=== PATIENT | male | born 1985 | race Asian ===

== ENCOUNTER 2018-05-25 17:07 | Inpatient (IN) | payer OTHER ==
--- NOTE | 2018-05-25 17:10 | EDPHY ---
H & P Time Seen by Provider: 05/25/18 17:10 HPI/ROS: CHIEF COMPLAINT: Abdominal pain HISTORY OF PRESENT ILLNESS: Started having abdominal pain yesterday initially epigastric now moved to the right lower quadrant. Worse with movement, associated with nausea vomiting but no diarrhea. He has some constipation. Not associated with urinary symptoms. Went to urgent care today and was then referred here. Symptoms now moderate to severe. No radiation. REVIEW OF SYSTEMS: Eye: no change in vision ENT: no sore throat Cardiac: no chest pain or syncope Pulmonary: no cough or SOB Abdomen: HPI Musculoskeletal: no back pain Skin: no rash Neuro: no headache Constitutional: no fever : no urinary symptoms A comprehensive 10 point review of systems is otherwise negative aside from elements mentioned in the history of present illness. PAST MEDICAL HISTORY: Negative Social history: No alcohol General Appearance: Alert and conversant, cooperative. Eyes: No scleral icterus. ENT, Mouth: Dry mucous membranes. Respiratory: Normal respiratory effort, breath sounds equal, lungs are clear to auscultation. Cardiovascular: Regular rate and rhythm. Gastrointestinal: Normal male , McBurney's point tenderness with guarding. Decreased bowel sounds. Neurological: Alert, face symmetric, normal motor and sensory in extremities. Skin: Warm and dry, no rashes. Musculoskeletal: No peripheral edema. Psychiatric: Not agitated. Emergency Department course/MDM: Zofran 4 mg IV, fentanyl 100 mcg IV. I-STAT and CT scanning discussed and consented, moderate suspicion for appendicitis. 174: istat creat 1.0, CT ordered. 1826: Patient given 1 g IV Invanz, specifically at the request of consulting surgeon Dr. Nieto. Results and plan discussed with the patient. Emilia in ED to see him. Constitutional: Initial Vital Signs Temperature (C) 36.9 C 05/25/18 17:12 Heart Rate 112 H 05/25/18 17:12 Respiratory Rate 16 05/25/18 17:12 Blood Pressure 139/90 H 05/25/18 17:12 O2 Sat (%) 93 05/25/18 17:12 O2 Delivery Mode Room Air Allergies/Adverse Reactions: No Known Allergies Allergy (Unverified 05/25/18 17:12) Home Medications: Medication Instructions Recorded NK [No Known Home Meds] 05/25/18 Medical Decision Making - Diagnostics Imaging Results: CT discussed with Dr. Ferrera shows appendicitis with appendicolith. Also has some small bowel inflammation. Imaging: Discussed imaging studies w/ finishing technician Radiologist, I viewed and interpreted images myself Differential Diagnosis: Differential considered including but not limited to appendicitis, testicular torsion, renal colic, UTI, cecal volvulus. Consult/Admit Bed Type: [place] [id number] - Data Points Laboratory Results: Laboratory Results 05/25/18 17:20 05/25/18 17:20 05/25/18 05/25/18 05/25/18 17:25 17:20 17:20 WBC 21.04 10^3/uL H 10^3/uL (3.80-9.50) RBC 5.56 10^6/uL 10^6/uL (4.40-6.38) Hgb 16.9 g/dL g/dL (13.7-17.5) POC Hgb 17.3 gm/dL gm/dL (13.7-17.5) Hct 48.7 % % (40.0-51.0) POC Hct 51 % % (40-51) MCV 87.6 fL fL (81.5-99.8) MCH 30.4 pg pg (27.9-34.1) MCHC 34.7 g/dL g/dL (32.4-36.7) RDW 12.5 % % (11.5-15.2) Plt Count 324 10^3/uL 10^3/uL (150-400) MPV 9.7 fL fL (8.7-11.7) Neut % (Auto) 83.9 % H % (39.3-74.2) Lymph % (Auto) 9.4 % L % (15.0-45.0) [place] % (Auto) 6.2 % % (4.5-13.0) Eos % (Auto) 0.0 % L % (0.6-7.6) Baso % (Auto) 0.1 % L % (0.3-1.7) Nucleat RBC Rel Count 0.0 % % (0.0-0.2) Absolute Neuts (auto) 17.65 10^3/uL H 10^3/uL (1.70-6.50) Absolute Lymphs (auto) 1.97 10^3/uL 10^3/uL (1.00-3.00) Absolute Monos (auto) 1.30 10^3/uL H 10^3/uL (0.30-0.80) Absolute Eos (auto) 0.00 10^3/uL L 10^3/uL (0.03-0.40) Absolute Basos (auto) 0.03 10^3/uL 10^3/uL (0.02-0.10) Absolute Nucleated RBC 0.00 10^3/uL 10^3/uL (0-0.01) Immature Gran % 0.4 % % (0.0-1.1) Immature Gran # 0.09 10^3/uL 10^3/uL (0.00-0.10) POC Sodium 138 mEq/L mEq/L (135-145) Sodium 137 mEq/L mEq/L (135-145) POC Potassium 3.7 mEq/L mEq/L (3.3-5.0) Potassium 4.3 mEq/L mEq/L (3.3-5.0) POC Chloride 101 mEq/L mEq/L (97-110) Chloride 100 mEq/L mEq/L (97-110) Carbon Dioxide 22 mEq/l mEq/l (22-31) Anion Gap 15 mEq/L mEq/L (8-16) POC BUN 17 mg/dL mg/dL (7-23) BUN 16 mg/dL mg/dL (7-23) Creatinine 1.0 mg/dL mg/dL (0.7-1.3) POC Creatinine 1.0 mg/dL mg/dL (0.7-1.3) Estimated GFR > 60 Glucose 127 mg/dL H mg/dL (70-100) POC Glucose 133 mg/dL H mg/dL (70-100) Calcium 10.0 mg/dL mg/dL (8.5-10.4) Medications Given: Discontinued Medications Fentanyl (Sublimaze) 100 mcg IVP EDNOW ONE Stop: 05/25/18 17:16 Last Admin: 05/25/18 17:20 Dose: 100 mcg Sodium Chloride (Ns) 1,000 mls @ 0 mls/hr IV EDNOW ONE; Wide Open PRN Reason: Protocol Stop: 05/25/18 17:16 Last Admin: 05/25/18 17:20 Dose: 1,000 mls Ertapenem 1 gm/ Sodium (Chloride) 100 mls @ 200 mls/hr IV EDNOW ONE PRN Reason: Protocol Stop: 05/25/18 19:29 Last Admin: 05/25/18 18:53 Dose: 100 mls Ondansetron HCl (Zofran) 4 mg IVP EDNOW ONE Stop: 05/25/18 17:16 Last Admin: 05/25/18 17:20 Dose: 4 mg Point of Care Test Results: Chemistry 05/25/18 17:25 POC Sodium 138 mEq/L mEq/L (135-145) POC Potassium 3.7 mEq/L mEq/L (3.3-5.0) POC Chloride 101 mEq/L mEq/L (97-110) POC BUN 17 mg/dL mg/dL (7-23) POC Creatinine 1.0 mg/dL mg/dL (0.7-1.3) POC Glucose 133 mg/dL H mg/dL (70-100) ISTAT H&H 05/25/18 17:25 POC Hgb 17.3 gm/dL gm/dL (13.7-17.5) POC Hct 51 % % (40-51) Departure - Departure Disposition: To OP Cath/Surgery Clinical Impression: Acute appendicitis Qualifiers: Acute appendicitis type: with localized peritonitis Appendicitis gangrene presence: unspecified whether gangrene present Appendicitis perforation presence : without perforation Appendicitis abscess presence: without abscess Qualified Code(s): K35.30 - Acute appendicitis with localized peritonitis, without perforation or gangrene Condition: Good
[2018-05-25] MEDS ORDERED: fentaNYL 100 MCG/2 ML INJ IVP ONE (17:15)
[2018-05-25] MEDS ORDERED: ONDANSETRON 4 MG/2 ML VIAL IVP ONE (17:15)
[2018-05-25] MEDS ORDERED: NS 1,000 ML IV ONE ×2 (17:15→17:46)
[2018-05-25 17:29] LABS: PLATELET COUNT 324 10^3/uL (150-400)
[2018-05-25] MEDS ORDERED: IOPAMIDOL (ISOVUE-300) 100 ML BTL ONE (17:41)
[2018-05-25] MEDS ORDERED: ERTAPENEM IV ONE (18:27)
[2018-05-25] MEDS ORDERED: DEXTROSE IV ONE (18:27)
[2018-05-25] MEDS ORDERED: NS IV ONE (18:27)
[2018-05-25] MEDS ORDERED: CEFTRIAXONE IV ONE (18:27)
[2018-05-25] MEDS ORDERED: ERTAPENEM 1 GM in NS 100 ML IV ONE (19:00)
[2018-05-25] MEDS ORDERED: ONDANSETRON 4 MG/2 ML VIAL IVP PRN ×2 (19:28→20:28)
[2018-05-25] MEDS ORDERED: HYDROmorphONE/DILAUDID 1 MG/ML INJ IVP PRN (19:28)
[2018-05-25] MEDS ORDERED: ACETAMINOPHEN 325 MG TAB PO SCH (19:30)
[2018-05-25] MEDS ORDERED: ROCURONIUM 50 MG/5 ML VIAL ONE (19:40)
[2018-05-25] MEDS ORDERED: fentaNYL 100 MCG/2 ML INJ ONE (19:40)
[2018-05-25] MEDS ORDERED: GLYCOPYRROLATE 0.2 MG/1 ML VIAL ONE (19:40)
[2018-05-25] MEDS ORDERED: PROPOFOL 200 MG/20 ML VIAL ONE (19:40)
[2018-05-25] MEDS ORDERED: LIDOCAINE 2% 2 ML INJ ONE (19:40)
[2018-05-25] MEDS ORDERED: ONDANSETRON 4 MG/2 ML VIAL ONE (19:40)
[2018-05-25] MEDS ORDERED: KETOROLAC 30 MG/1 ML SDV ONE (19:40)
[2018-05-25] MEDS ORDERED: NEOSTIGMINE METHYLSULFATE 5 MG/5 ML SYR ONE (19:40)
[2018-05-25] MEDS ORDERED: DEXAMETHASONE 4 MG/ML VIAL ONE ×2 (19:40)
--- NOTE | 2018-05-25 20:03 | PDANEPAE ---
ANE Past Medical History - Pulmonary History Hx Oxygen in Use at Home: No Hx Sleep Apnea: No - Endocrine History Hx Diabetes: No Obesity: no ANE Review of Systems Review of Systems: ANE Patient History - Allergies Allergies/Adverse Reactions: No Known Allergies Allergy (Unverified 05/25/18 17:12) - Home Medications Home medications: none Home Medications: NK [No Known Home Meds] 05/25/18 [Last Taken Unknown] - NPO status NPO Since - Liquids (Date): 05/25/18 NPO Since - Liquids (Time): 13:00 NPO Since - Solids (Date): 05/25/18 NPO Since - Solids (Time): 13:00 - Smoking Hx Smoking Status: Never smoked - Family Anes Hx Family Anes Hx: neg - N/A ANE Labs/Vital Signs - Labs Result Diagrams: 05/25/18 17:20 05/25/18 17:20 - Vital Signs Blood Pressure: 139/90 Heart Rate: 112 Respiratory Rate: 16 O2 Sat (%): 93 Height: 170.18 cm Weight: 77.111 kg ANE Physical Exam - Airway Neck exam: FROM Mallampati Score: Class 2 Mouth exam: normal dental/mouth exam - Pulmonary Pulmonary: no respiratory distress, no rales or rhonchi, clear to auscultation - Cardiovascular Cardiovascular: tachycardia - ASA Status ASA Status: I, E ANE Anesthesia Plan Anesthesia Plan: general endotracheal anesthesia
[2018-05-25] MEDS ORDERED: LR 500 ML IV PRN (20:28)
[2018-05-25] MEDS ORDERED: MEPERIDINE 25 MG/0.5 ML AMP IVP PRN (20:28)
[2018-05-25] MEDS ORDERED: DIAZEPAM 5 MG/ML 1 ML SYR IVP PRN (20:28)
[2018-05-25] MEDS ORDERED: PROMETHAZINE HCL 25 MG/ML INJ IVP PRN (20:28)
[2018-05-25] MEDS ORDERED: fentaNYL 100 MCG/2 ML INJ IVP PRN (20:28)
[2018-05-25] MEDS ORDERED: NALOXONE HCL 0.4 MG/ML INJ IVP PRN (20:28)
[2018-05-25] MEDS ORDERED: HEPARIN 5,000 UNIT/0.5 ML INJ ONE ×2 (20:40→20:41)
[2018-05-25] MEDS ORDERED: ceFAZolin 1 GM/5 ML SYR ONE (20:41)
--- NOTE | 2018-05-25 20:56 | GHP ---
DATE OF ADMISSION: 05/25/2018 ADMITTING DIAGNOSIS: Acute appendicitis with appendicolith, possible inflammatory bowel disease. HISTORY: The patient is a 33-year-old male who was in his usual state of good health until he woke from sleep yesterday morning. He had been awoken by pain in his epigastric area, described as a constant pressure. He did not have breakfast yesterday morning and was not hungry for lunch or dinner. He had some Kaopectate in the evening and vomited 2 times after the Kaopectate. He slept poorly. He went to Urgent Care this morning and they were unclear as to the etiology of his intra abdominal process but recommended that he come to the ER if it didn't improve. The pain progressed to become verona-umbilical and then finally right lower quadrant. He presented to the emergency room at 5 p.m. He did have a bowl of rice soup, small amount of vegetables and pork at 1 p.m. today. He has no history of upper respiratory tract infection or diarrhea in the last 2 weeks. He has not traveled outside the [place] or had antibiotics in the last 6 months. He has had no prior surgery and no prior similar symptoms. There is no history of inflammatory bowel disease. PAST MEDICAL HISTORY: There is no history of rheumatic fever, tuberculosis, hepatitis, or transfusions. SOCIAL HISTORY: He does not smoke and never has. He drinks approximately 1 beer per week. ALLERGIES: He has no known drug allergies. MEDICATIONS: He is not taking medications. PAST SURGICAL HISTORY: He has not had any prior surgeries. REVIEW OF SYSTEMS: He wears lenses for visual correction. Review of systems otherwise quite negative. There are no limitations on his activities. PHYSICAL EXAMINATION: GENERAL: He is awake and alert, cooperative and in pain. VITAL SIGNS: His blood pressure is 139/90 at 1:12, room air saturation 93, temperature 36.9. HEAD: Skull is normocephalic and atraumatic. NEUROLOGIC: He is awake and alert and oriented. Dana Coma Scale 15. There are no focal or lateralizing neurologic findings. Strength is 5/5 in all muscle groups. Neck: There is no cervical, supraclavicular, axillary, or inguinal lymphadenopathy. Thyroid is not enlarged. BACK: Unremarkable. LUNGS: Clear to auscultation. CARDIAC: Exam shows S1, S2 to be normal. Split of S2 without murmurs, rubs, or gallops. ABDOMEN: Shows distinctly hypoactive bowel sounds. He is tender with cough on either side of the midline in the epigastrium just above the level of the umbilicus at about 3 fingerbreadths either side. He says that is approximately a 3-4 pain. Psoas and obturator signs are both positive. To palpation, left upper abdomen is 2 on a scale of 1-10, left mid abdomen is 1 , left lower quadrant is 2, epigastrium is 1, periumbilical area is 2-3, suprapubic area is 4-5, right upper quadrant is 2, right mid abdomen is 4-5, right lower quadrant is 4-5. LABORATORY VALUES: White blood cell count is 21,000 with 84% neutrophils. Hematocrit 48.7. Platelet count 324. BUN 16, creatinine 1.0. Glucose 127. IMAGING: His CAT scan shows a dilated appendix with an appendicolith at its base. There is some thickening of the small bowel wall. IMPRESSION: He certainly has an obstructed appendix with appendicolith. He may also have an inflammatory bowel disease (Crohn's). There is no family history of Crohn's. Nonetheless, an appendectomy is important at this point to: 1. Treat the appendicitis. 2. Eliminate a possible confusing problem in the future. With the appendicolith, this is the case which should not be appropriate for non -operative antibiotic therapy. /[id number]/MODL MTDD
--- NOTE | 2018-05-25 21:03 | POSTOPPROG ---
Post Op Note Date of Operation: 05/25/18 Surgeon: Dyllan Nieto Anesthesia: GET(General Endotracheal) Pre-op Diagnosis: Acute appendicitis with appendicolith, possible Crohn's disease Post-op Diagnosis: Acute ruptured appendicitis with appendicolith and peritonitis Indication: Acute appendicitis with appendicolith, possible Crohn's disease Procedure: Laparoscopic appendectomy Findings: Acute ruptured appendicitis with appendicolith and peritonitis Inf/Abcess present in the surg proc area at time of surgery?: Yes Depth: Organ Space EBL: 50-100 Total fluids administered: 1999 Complications: none Drains: Melvin Grayson Specimen(s): Appendix ; peritoneal fluid for culture
--- NOTE | 2018-05-25 21:07 | POSTANESTH ---
Post Anesthetic Evaluation Cardiovascular Status: Normal, Stable (Tachycardia resolving with IV hydration: 2 liters crystalloid so far.) Respiratory Status: Normal, Stable, Similar to Pre-op Cond. Level of Consciousness/Mental Status: Can Participate in Eval, Mildly Sleepy, Arousable Pain Control: Adequate, Prn Tx Ordered Nausea/Vomiting Control: Adequate, Prn Tx Ordered Complications Possibly Related to Anesthesia: None Noted
[2018-05-25] MEDS: ACETAMINOPHEN 500 MG TAB PO SCH (22:52)
[2018-05-25] MEDS: KETOROLAC 15 MG/1 ML SDV IVP SCH (23:09)
[2018-05-25] MEDS: LR 1,000 ML IV SCH (23:14)
[2018-05-26] MEDS: ACETAMINOPHEN 500 MG TAB PO SCH ×3 (05:20→19:46)
[2018-05-26] MEDS: KETOROLAC 15 MG/1 ML SDV IVP SCH ×3 (05:20→17:08)
[2018-05-26 06:14] LABS: PLATELET COUNT 226 10^3/uL (150-400)
--- NOTE | 2018-05-26 07:16 | PDMN ---
Medical Necessity Medical necessity: [facility] [place]: S185 appendectomy, with abscess or peritonitis by Lap 2 days- OP: Lap appy - acute ruptured appendicitis with appendicolith and peritonitis - - ALISSA drain placed.
--- NOTE | 2018-05-26 09:13 | GOP ---
DATE OF OPERATION: 05/25/2018 SURGEON: Dyllan Nieto MD FACS ANESTHESIA: General endotracheal. ANESTHESIOLOGIST: Dr. Wayne Biggs PREOPERATIVE DIAGNOSIS: Acute appendicitis with appendicolith and possible Crohn's disease. POSTOPERATIVE DIAGNOSIS: Ruptured appendicitis with appendicolith and peritonitis. PROCEDURE PERFORMED: Laparoscopic appendectomy. FINDINGS: Acute ruptured appendicitis with appendicolith and peritonitis. Deep space infection is at the organ space level; i.e., peritoneum. SPECIMENS: Appendix and peritoneal fluid for culture. ESTIMATED BLOOD LOSS: About 50 cc. INDICATIONS: Acute appendicitis with appendicolith and possible Crohn disease. DESCRIPTION OF PROCEDURE: The patient was placed on the operating table. He was unable to void preoperatively. He had not voided all day long. By bladder scan, he had 175 cc in his bladder. He felt grossly dehydrated and was hydrated over the course of the procedure. The abdomen was carefully clipped, prepped, and draped. A surgical time-out was carried out and agreed to by all members of the operative team. A transverse suprapubic incision was planned and as well as an oblique left lower quadrant incision. These were both for a 5 mm ports. The skin was incised in both cases, and the dermis was incised with Bovie electrocautery. A curvilinear incision was then placed in the inferior umbilical fold. The skin was sharply incised. The incision was deepened with Bovie electrocautery, and then a spreading technique was used to expose the anterior rectus sheath bilaterally. It was elevated between 2 Allis clamps. The fascia was divided in the midline. A fascial pursestring of #0 PDS was placed. The peritoneum was entered, and a foul smell was identified. The spreading technique was used to enter the peritoneum. S retractor was used to guide the introduction of 11/12 mm disposable Aron trocar. Insufflation was carried out to 15 mmHg high-flow. The patient was then placed in Trendelenburg position. He was rotated 5 degrees to the left after the left lower quadrant 5 mm port and the suprapubic 5 mm port were both in place. The omentum was densely adherent to the right lower quadrant. This was carefully freed using a blunt dissecting technique. The appendix was large and matted. The antimesenteric raphe on the terminal ileum was carefully freed from the appendiceal mass. Careful dissection was carried out to free the cecum and appendix. It was carefully elevated. Dissection was carried out with a Harmonic scalpel and continued down to expose the base of the appendix on the cecum. Irrigation with heparin- and Ancef- containing irrigant was carried out at several levels after purulent fluid was aspirated initially for culture purposes. The appendix was transected with 2 applications of a 35 mm Endo YULI stapler. It was placed in an Endo Catch bag and delivered via the umbilical port site. Pneumoperitoneum was re-established. The small bowel was run for a distance of approximately 3 feet. There was no evidence of mesenteric adenitis, there was no evidence of Meckel diverticulum, and there was no evidence of fat wrapping of the small bowel that would suggest Crohn's disease. A 10 flat ALISSA drain was placed in the pelvis and led out through the left lower quadrant port site. This was secured to the skin level with 3-0 silk suture. The suprapubic port was removed at this point. Note was made that during the course of the procedure approximately 1.5 L of Ancef and heparin-containing irrigant was used. The umbilical port was removed. Inverted simple suture of #0 PDS was placed at the midpoint of the fascial incision. This was tied. The pursestring was now tied. The subcutaneous tissue was irrigated with heparin and Ancef-containing irrigant. Hemostasis was deemed to be excellent. Inverted simple sutures of #4 -0 Vicryl were placed at the suprapubic and the periumbilical skin incisions. Mastisol and Steri-Strips were placed, and a drain dressing was placed around the drain. The drain had been connected to a bulb suction. Band-Aids were placed over the suprapubic and umbilical incisions. The patient was transferred to recovery in stable and satisfactory condition. FLUIDS: 2000 cc. DRAINS: Melvin-Grayson in the pelvis. /[id number]/MODL MTDD
[2018-05-26] MEDS: LR 1,000 ML IV SCH ×2 (09:17→19:47)
--- NOTE | 2018-05-26 10:48 | SOAPPROG ---
SOAP Progress Note Assessment/Plan: 05/26/18 10:43 POD#1 Assessment: Feeling better but not flatus or stool, WBC down to 13K but total neutrophils 65 % ( bands 23% ), Afebrile ALISSA drainage serosanguineous gram stain - gram (-) rods, gram (+) rods, Gram (+) cocci many wbc Plan: Continue IV antibiotics, NPO Encourage OOB walking Will follow wbc/exam Subjective: "I'm not passing gas" Objective: Vital Signs Temp Pulse Resp BP Pulse Ox 36.6 C 66 14 94/57 L 98 05/26/18 07:34 05/26/18 07:34 05/26/18 07:34 05/26/18 07:34 05/26/18 07:34 Microbiology 05/25/18 20:45 Gram Stain - Final Peritoneal Fluid - Eswab Laboratory Results 05/26/18 05:20 05/26/18 05:20 05/25/18 05/26/18 05/27/18 05:59 05:59 05:59 Intake Total 620 Output Total 750 Balance -130 - Time Spent With Patient Time Spent With Patient: 15 Physical Exam - Physical Exam General Appearance: WD/WN, alert, mild distress Respiratory: chest non-tender, lungs clear, normal breath sounds Cardiac/Chest: regular rate, rhythm Abdomen: distended, other (hypoactive , rare bowel sounds) Male Genitalia: deferred Rectal: deferred Back: Normal inspection Skin: normal color, warm/dry Extremities: normal range of motion, non-tender Neuro/Psych: no motor/sensory deficits, alert, normal mood/affect, oriented x 3 ICD10 Worksheet Patient Problems: Problems Problem Status Onset Acute appendicitis Acute
--- NOTE | 2018-05-26 11:37 | ASMTCMCOM ---
CM Note CM Note Notes: CM note: Patient is a 33 year old male admitted via [facility] ED for Acute Appendicitis with localized peritonitis without perforation or gangrene. CM spoke with floor RN, likely to discharge 05/27 to independent to home. CM to follow. Date Signed: 05/26/2018 11:36 AM Electronically Signed By:Ale Hathaway
[2018-05-26] MEDS ORDERED: ERTAPENEM 1 GM in NS 100 ML IV SCH (19:00)
[2018-05-27] MEDS: KETOROLAC 15 MG/1 ML SDV IVP SCH ×5 (00:17→23:11)
[2018-05-27] MEDS: ACETAMINOPHEN 500 MG TAB PO SCH ×3 (04:51→19:51)
[2018-05-27] MEDS: LR 1,000 ML IV SCH (04:57)
[2018-05-27 05:08] LABS: PLATELET COUNT 200 10^3/uL (150-400)
[2018-05-27] MEDS ORDERED: HYDROmorphONE/DILAUDID 1 MG/ML INJ IVP PRN (10:12)
[2018-05-27] MEDS ORDERED: ERTAPENEM 1 GM in NS 100 ML IV SCH ×2 (10:15→19:00)
[2018-05-27] MEDS ORDERED: LR 1,000 ML IV SCH (10:30)
--- NOTE | 2018-05-27 10:54 | SOAPPROG ---
SOAP Progress Note Assessment/Plan: 05/26/18 10:43 POD#1 Assessment: Feeling better but not flatus or stool, WBC down to 13K but total neutrophils 65 % ( bands 23% ), Afebrile ALISSA drainage serosanguineous gram stain - gram (-) rods, gram (+) rods, Gram (+) cocci many wbc Plan: Continue IV antibiotics, NPO Encourage OOB walking Will follow wbc/exam 05/27/18 10:50 POD#2 Assessment: Feels better, not really hungry, had one stool, pain still 2-3 with cough, afebrile, wbc down, two gram (-) rods - one lactose jigsawyer, one non-lactose jigsawyer. ALISSA output down but still serosanguineous. Plan: offer clear liquids Adjust antibiotics when ID and Sensitivities available continue ALISSA drain F/u CBC in AM 05/28 Subjective: "I'm not hungry, my pain is present but improved" Objective: Vital Signs Temp Pulse Resp BP Pulse Ox 37.3 C 106 H 14 104/66 92 05/27/18 07:43 05/27/18 07:43 05/27/18 07:43 05/27/18 07:43 05/27/18 07:43 Microbiology 05/25/18 20:45 Gram Stain - Final Peritoneal Fluid - Eswab Laboratory Results 05/27/18 04:46 05/27/18 04:46 05/26/18 05/27/18 05/28/18 05:59 05:59 05:59 Intake Total 620 1922 Output Total 750 55 400 Balance -130 1867 -400 - Time Spent With Patient Time Spent With Patient: 15 Physical Exam - Physical Exam General Appearance: WD/WN, alert, mild distress Respiratory: lungs clear, normal breath sounds Cardiac/Chest: regular rate, rhythm Abdomen: soft, distended, other (hypoactive bowel sounds) Male Genitalia: deferred Rectal: deferred Back: Normal inspection Skin: normal color, warm/dry Neuro/Psych: no motor/sensory deficits, alert, normal mood/affect, oriented x 3 ICD10 Worksheet Patient Problems: Problems Problem Status Onset Acute appendicitis Acute
[2018-05-28] MEDS: ACETAMINOPHEN 500 MG TAB PO SCH ×3 (05:09→20:38)
[2018-05-28] MEDS: KETOROLAC 15 MG/1 ML SDV IVP SCH ×4 (05:10→23:03)
[2018-05-28 05:22] LABS: PLATELET COUNT 211 10^3/uL (150-400)
--- NOTE | 2018-05-28 17:45 | SOAPPROG ---
SOAP Progress Note Assessment/Plan: Assessment/Plan: POD#2 s/p lap partial cecectomy for ruptured appendicitis Peritoneal swab E. Coli and Pseudomonas sensitive to meropenam and levaquin AVSS RRR CTA Abd soft no peritoneal signs.ALISSA sanguinous Ext no edema Change to levaquin from invanz Adv diet D/c tomorrow in 3-5 days of abx 05/28/18 17:41 Objective: Vital Signs Temp Pulse Resp BP Pulse Ox 36.8 C 72 16 104/69 92 05/28/18 16:00 05/28/18 16:00 05/28/18 16:00 05/28/18 16:00 05/28/18 16:00 Microbiology 05/25/18 20:45 Gram Stain - Final Peritoneal Fluid - Eswab Laboratory Results 05/28/18 05:00 05/27/18 04:46 05/27/18 05/28/18 05/29/18 05:59 05:59 05:59 Intake Total 1922 1700 500 Output Total 55 495 70 Balance 1867 1205 430 ICD10 Worksheet Patient Problems: Problems Problem Status Onset Acute appendicitis Acute
[2018-05-28] MEDS ORDERED: HYDROmorphONE/DILAUDID 2 MG/ML INJ IVP PRN (22:00)
[2018-05-29] MEDS: KETOROLAC 15 MG/1 ML SDV IVP SCH (05:02)
[2018-05-29] MEDS: ACETAMINOPHEN 500 MG TAB PO SCH (05:02)
--- NOTE | 2018-05-29 08:01 | PDDCSUM ---
Discharge Summary Discharge Summary: Date of admission: 05/25/2018 Date of discharge: 05/29/2018 Principal diagnosis gangrenous ruptured appendicitis Complications in hospital: None Principal procedure laparoscopic cecectomy and appendectomy. Findings acute transmural appendicitis with Pseudomonas and E coli sensitive to Levaquin. Hospital course: This is a 33-year-old gentleman who presents to the hospital with acute right lower quadrant abdominal pain imaging and laboratory studies along with clinical exam suggestive of acute appendicitis. In the operating room the patient was found to have a gangrenous appendiceal base and partial cecectomy was elected on. He was continued on Invanz for antibiotic coverage. The day before discharge she was found to have Pseudomonas which was resistant to Invanz although the E coli was sensitive. He was switched to Levaquin. His drain output was minimal. He was tolerating regular diet. He was ambulatory without assistance. No documented fevers in the last 24 hr. His white blood cell count had returned to normal. He was instructed to advance his diet and activity gradually over the next week. He will continue Levaquin for 3-5 days postoperatively. He is to call with any concerns regarding his surgery is high or hospitalization including but not limited to temperature greater than 101.5, inability eat, pain not controlled by medication, drainage more than a tbsp from his Melvin-Grayson site or redness or drainage from any of his additional wounds. The patient verbalized his understanding. He will call to make an appointment to follow up with me in 1 week. All questions were addressed.
[2018-05-29 08:23] VITALS: BP 119/72
== END 2018-05-29 10:58 | disposition home or self-care (01) | DRG 343 ==
LOC: UNDOADMIN 18:28 → UNDODISIN 19:06 → FSGY 19:32 → OBSVTOIN 19:33 → F3E 21:56
PROVIDERS: ADMIT Surgery; ATTEND Surgery
PROC: 0DTJ4ZZ Resection of Appendix, Percutaneous Endoscopic Approach (ICD-10-PCS; principal; 2018-05-25 18:30)
DX: K35.20 Acute appendicitis with generalized peritonitis, without abscess (principal); E86.9 Volume depletion, unspecified; B96.5 Pseudomonas (aeruginosa) (mallei) (pseudomallei) as the cause of diseases classified elsewhere; B96.20 Unspecified Escherichia coli [E. coli] as the cause of diseases classified elsewhere
CPT/HCPCS: 82435-PO; 82565-PO; 82947-PO; 84132-PO; 84295-PO; 84520-PO; 85014-PO; 96365; J0696; J1100; J1335; J1644; J1885; J2405; J2704; J2710; J3010; Q9967